=== PATIENT | female | born 1965 | race Caucasian/White ===

== ENCOUNTER 2019-09-30 17:09 | Emergency (ER) | payer MEDICAID ==
[~2019-09-30] VITALS: Ht 160 cm; Wt 90.9 kg
[~2019-09-30 17:09] MED LIST: GUAI600T45 PO
[2019-09-30 17:21] VITALS: BP 111/81
[2019-09-30] MEDS ORDERED: ketorolac tromethamine 15mg/ml inj. IM ONE (19:25)
[2019-09-30] MEDS ORDERED: CYCL-1 PO (19:27)
[2019-09-30] MEDS ORDERED: IBUP-1984 PO (19:27)
== END 2019-09-30 19:41 | disposition home or self-care (01) ==
LOC: ER 17:09
DX: M54.41 Lumbago with sciatica, right side (principal); G89.29 Other chronic pain; M79.7 Fibromyalgia; F17.200 Nicotine dependence, unspecified, uncomplicated; Z88.0 Allergy status to penicillin; Z88.1 Allergy status to other antibiotic agents
CPT/HCPCS: 96372; 99283; J1885

== ENCOUNTER 2019-10-11 13:35 | Emergency (ER) | payer MEDICAID ==
[~2019-10-11] VITALS: Ht 162.6 cm; Wt 94.0 kg
[~2019-10-11 13:35] MED LIST changes: +CYCL-1 PO
[2019-10-11 15:11] VITALS: BP 145/93
== END 2019-10-11 15:35 | disposition home or self-care (01) ==
LOC: ER 13:35
DX: M79.604 Pain in right leg (principal); M54.5 Low back pain; M79.7 Fibromyalgia; Z88.0 Allergy status to penicillin; Z88.1 Allergy status to other antibiotic agents; Z79.899 Other long term (current) drug therapy
CPT/HCPCS: 93971; 99284